=== PATIENT | female | born 1940 | race Caucasian/White ===

== ENCOUNTER → 2018-03-23 14:19 | Outpatient (POV) | payer MEDICARE, SELFPAY | PROVIDERS: Visit Provider Internal Medicine | DX: Z00.00 Encounter for general adult medical examination without abnormal findings (principal) ==

== ENCOUNTER → 2018-10-07 15:10 | Outpatient (CLI) | payer MEDICARE, SELFPAY ==
--- NOTE | 2018-10-07 15:24 | CT_ITS ---
CT chest wo con HISTORY: Multiple pulmonary nodules ITS.REASON: PUMONARY NODULES ORDERING PHYSICIAN: Gab Rosario MD PATIENT AGE: 78 years COMPARISON: None Technique: Axial images obtained with sagittal and coronal reformats. All CT scans at the facility use one or more dose reduction, viz: automated exposure control, ma/kV adjustment per patient size (including targeted exams where dose is matched to indication, i.e. head), or iterative reconstruction technique. FINDINGS: No mediastinal or hilar mass or adenopathy. There is diffuse centrilobular emphysema with some central bullous change in the right upper lobe. A 6 mm nodular density is present in the right minor fissure anteriorly and laterally. There is a curvilinear area of increased soft tissue density in the right middle lobe laterally along the major fissure along with an 18 x 9 mm mm nodular opacity along the anterior aspect of this abnormality. 5 mm nodular present in the right middle lobe anteriorly subpleural region and then additional 6 mm nodule is present major fissure area right inferiorly. Small pneumatoceles are present in the right lung base. There is a 5 mm noncalcified nodule laterally. There is mild diffuse bronchial thickening. There is a medium-sized hiatal hernia. There are coronary artery calcifications and there is a nonobstructing 2 mm stone in the mid polar region of the right kidney. A ventral abdominal wall hernia is present containing fat and is 13 cm inferior to the xiphoid and slightly to the right of midline. IMPRESSION: 1. There are multiple noncalcified pulmonary nodules described above. The largest nodular densities in the region of the right minor fissure and could be related to scarring. Three-month CT follow-up is suggested to confirm stability. 2. Centrilobular emphysema/COPD. 3. Coronary artery calcifications, or hiatal hernia, ventral abdominal wall hernia
== END ==
PROVIDERS: PCP Internal Medicine; Visit Provider Internal Medicine
DX: R91.8 Other nonspecific abnormal finding of lung field (principal)
CPT/HCPCS: 71250

== ENCOUNTER → 2018-10-26 14:21 | Outpatient (POV) | payer MEDICARE, SELFPAY | PROVIDERS: Visit Provider Internal Medicine | DX: Z00.00 Encounter for general adult medical examination without abnormal findings (principal) ==

== ENCOUNTER → 2019-04-26 15:16 | Outpatient (POV) | payer MEDICARE, SELFPAY | PROVIDERS: Visit Provider Internal Medicine | DX: Z00.00 Encounter for general adult medical examination without abnormal findings (principal) ==